=== PATIENT | female | born 1970 | race Caucasian/White ===

== ENCOUNTER → 2016-10-29 | Outpatient (CLI) | payer OTHER ==
[~2016-10-29] MED LIST: ASPI81TA21 PO; CETI10TA84 PO; CHOL100010 PO; IBUP600T44 PO; LEVO125T7 PO; NSNN50
[2016-10-29 12:42] LABS: ALT/SGPT 20 U/L (12-78); AST/SGOT 14 U/L (15-37); BLOOD UREA NITROGEN 9 mg/dl (7-18); BUN/CREATININE RATIO 12.6 (10-20); CARBON DIOXIDE 28 mmol/L (21-32); CHLORIDE 104 mmol/L (98-107); CREATININE 0.74 mg/dl (0.60-1.20); GLUCOSE 93 mg/dl (70-99); POTASSIUM 4.1 mmol/L (3.5-5.1); SODIUM 140 mmol/L (136-145)
[2016-10-29 12:50] LABS: ALB/GLOB RATIO 1.4 (0.9-2); ALKALINE PHOSPHATASE 67 U/L (45-117); CHOLESTEROL 184 mg/dl (0-200); HDL CHOLESTEROL 62 mg/dl; LDL CHOLESTEROL CALCULATED 108 mg/dl; THYROID STIMULATING HORMONE 0.683 uIu/ml (0.300-4.500); TRIGLYCERIDES 70 mg/dl (0-150); VERY LOW DENSITY LIPOPROT CALC 14 mg/dl
== END | disposition home or self-care (01) ==
LOC: C.LABBFT 09:50
PROVIDERS: ATTEND Nurse Practitioner
DX: E03.9 Hypothyroidism, unspecified (principal); R73.01 Impaired fasting glucose

== ENCOUNTER → 2016-11-05 | Outpatient (CLI) | payer OTHER | END | disposition home or self-care (01) | LOC: C.PAPS 16:51 | PROVIDERS: ATTEND Obstetrics & Gynecology | DX: Z12.4 Encounter for screening for malignant neoplasm of cervix (principal) ==

== ENCOUNTER → 2016-12-07 | Outpatient (CLI) | payer OTHER ==
--- NOTE | 2016-12-07 15:33 | DIAGNOSTIC IMAGING REPORT ---
RIGHT FOOT 3 VIEWS HISTORY: M79.673 Pain in foot Right COMPARISON: None. FINDINGS: There is no fracture or dislocation. Soft tissues are unremarkable. No radiopaque foreign bodies. IMPRESSION: No fractures. Electronically signed by: Paco Karimi M.D. 12/07/2016 3:31 PM Dictated Date/Time: 12/07/2016 3:29 PM
== END | disposition home or self-care (01) ==
LOC: C.RAD 14:34
PROVIDERS: ATTEND Internal Medicine
DX: M79.673 Pain in unspecified foot (principal)

== ENCOUNTER → 2016-12-10 | Outpatient (CLI) | payer OTHER ==
--- NOTE | 2016-12-10 13:16 | MAMMOGRAPHY REPORT ---
BILATERAL DIGITAL SCREENING MAMMOGRAM TOMOSYNTHESIS WITH CAD: 12/10/2016 TECHNIQUE: Breast tomosynthesis in addition to standard 2D mammography was performed. Current study was also evaluated with a Computer Aided Detection (CAD) system. COMPARISON: Comparison is made to exams dated: 04/04/2015 mammogram, 05/19/2012 mammogram, 02/01/2014 ma mmogram, 03/25/2011 mammogram, and 01/09/2010 mammogram - [facility]. BREAST COMPOSITION: There are scattered areas of fibroglandular density in both breasts. FINDINGS: No suspicious masses, calcifications, or areas of architectural distortion are noted in e ither breast. There has been no significant interval change compared to prior exams. Focal asymmetr y in the right upper outer quadrant is stable dating back to at least the 2011 exam. Asymmetry seen within the left lateral posterior breast on the cc view has the appearance of normal fibroglandular tissue on the tomosynthesis images. IMPRESSION: ACR BI-RADS CATEGORY 2: BENIGN There is no mammographic evidence of malignancy. A 1 year screening mammogram is recommended. The p atient will receive written notification of the results. Approximately 10% of breast cancers are not detected with mammography. A negative mammographic repor t should not delay biopsy if a clinically suggestive mass is present. Payton Castillo M.D. /:12/10/2016 07:40:42 Infection Control Preventionist: Marissa HAIDER(Ena)(M), [facility] letter sent: Normal 1/2 BI-RADS Code: ACR BI-RADS Category 2: Benign
== END | disposition home or self-care (01) ==
LOC: C.MAMM 06:57
PROVIDERS: ATTEND Obstetrics & Gynecology
DX: Z12.31 Encounter for screening mammogram for malignant neoplasm of breast (principal)

== ENCOUNTER → 2016-12-28 | Outpatient (CLI) | payer OTHER ==
--- NOTE | 2016-12-28 15:26 | DIAGNOSTIC IMAGING REPORT ---
BONE SCAN LIMITED CLINICAL HISTORY: Right foot pain at the level of the distal metatarsals. Clinical concern for stress fracture. COMPARISON STUDY: Bone scan of the feet dated 04/10/2013. Radiographs of the right foot dated 12/07/2016.. TECHNIQUE: Three hours following the IV administration of 27.5 mCi of technetium 99m MDP, nuclear bone scan of the feet is performed. Images of both feet are obtained in multiple obliquities. FINDINGS: There is no focal abnormal tracer deposition identified in the region of the distal metatarsals of the right foot to suggest stress fracture. No asymmetric activity is identified in either foot. Low-level activity around the ankles suggests mild degenerative change. IMPRESSION: There is no abnormal tracer deposition identified to suggest stress fracture in the right foot as clinically queried. Electronically signed by: Eugenio Acuna M.D. 12/28/2016 3:24 PM Dictated Date/Time: 12/28/2016 3:21 PM
== END | disposition home or self-care (01) ==
LOC: C.NUCL 11:04
PROVIDERS: ATTEND Nurse Practitioner
DX: M79.671 Pain in right foot (principal)

== ENCOUNTER → 2017-03-18 | Outpatient (CLI) | payer OTHER ==
[2017-03-18 17:31] LABS: BASO % 0.1 %; BASO ABS # 0.01 K/uL (0-0.2); COMPLETE YES; EOS % 1.3 %; HEMATOCRIT 44.7 % (37-47); IG% 0.1 %; LYMPH % 21.3 %; MEAN CELL VOLUME 93.1 fL (80-100); MEAN CORPUSCULAR HEMOGLOBIN 29.8 pg (25-34); MEAN PLATELET VOLUME 9.9 fL (7.4-10.4); MONO % 10.1 %; NEUT % 67.1 %; PLATELET COUNT 309 K/uL (130-400); WHITE BLOOD COUNT 8.45 K/uL (4.8-10.8)
[2017-03-18 18:13] LABS: THYROID STIMULATING HORMONE 0.139 uIu/ml (0.300-4.500)
== END | disposition home or self-care (01) ==
LOC: C.LABBFT 17:17
PROVIDERS: ATTEND Nurse Practitioner
DX: E03.9 Hypothyroidism, unspecified (principal); K14.8 Other diseases of tongue; R53.83 Other fatigue

== ENCOUNTER → 2017-06-17 | Outpatient (CLI) | payer OTHER | END | disposition home or self-care (01) | LOC: C.LABBFT 13:48 | PROVIDERS: ATTEND Nurse Practitioner | DX: E03.9 Hypothyroidism, unspecified (principal) ==

== ENCOUNTER → 2017-12-31 | Outpatient (CLI) | payer OTHER ==
--- NOTE | 2017-12-31 13:20 | DIAGNOSTIC IMAGING REPORT ---
R WRIST MIN 3 VIEWS ROUTINE CLINICAL HISTORY: M25.531 Wrist pain, acute, [id number] pain COMPARISON: None. DISCUSSION: The bones and joint spaces appear intact. There is no evidence of fracture, dislocation or bony disease. There is no evidence for soft tissue swelling. IMPRESSION: Negative study. The above report was generated using voice recognition software. It may contain grammatical, syntax or spelling errors. Electronically signed by: Shaheen Schmidt M.D. 12/31/2017 1:19 PM Dictated Date/Time: 12/31/2017 1:18 PM
== END | disposition home or self-care (01) ==
LOC: C.RAD 12:54
PROVIDERS: ATTEND Nurse Practitioner
DX: M25.531 Pain in right wrist (principal)

== ENCOUNTER → 2018-05-09 | Outpatient (CLI) | payer OTHER ==
[~2018-05-09] MED LIST changes: +ASPI-319 PO; -ASPI81TA21 PO
== END | disposition home or self-care (01) ==
LOC: C.LAB1850 14:08
PROVIDERS: ATTEND Physician Assistant
DX: E03.9 Hypothyroidism, unspecified (principal)